=== PATIENT | female | born 1960 | race African-American/Black ===

== ENCOUNTER 2016-07-05 22:28 | Emergency (ER) | payer MEDICARE, OTHER ==
[~2016-07-05] VITALS: Ht 160 cm; Wt 68.0 kg
[~2016-07-05 22:28] MED LIST: ASPI-1035 GT; DOCU-138 GT; FAMO20TA8 GT; FENT1PAT4 TD; FERR-63 GT; FOLI-43 GT; GABA300S PO; LEVO112T7 GT; LEVO250T2 PO; METO5SOL19 PO
[2016-07-06] MEDS ORDERED: MORPHINE SULFATE 4 MG/ML CPJ (NOT FOR IM USE) IV ONE (00:45)
[2016-07-06] MEDS ORDERED: BACITRACIN ZINC OINT UDPKT TOP ONE (00:45)
[2016-07-06] MEDS ORDERED: LIDOCAINE HCL 1% 20ML VIAL (Pyxis) INJ MC ONE (00:45)
[2016-07-06] MEDS ORDERED: ONDANSETRON HCL 4MG/2ML VIAL IV ONE (00:45)
[2016-07-06 01:46] VITALS: BP 127/50
== END 2016-07-06 03:53 | disposition home or self-care (01) ==
LOC: ER 22:28
DX: K94.23 Gastrostomy malfunction (principal); C14.0 Malignant neoplasm of pharynx, unspecified; G89.3 Neoplasm related pain (acute) (chronic); R07.0 Pain in throat; I50.9 Heart failure, unspecified; Z88.0 Allergy status to penicillin; Z88.5 Allergy status to narcotic agent; Z79.899 Other long term (current) drug therapy
CPT/HCPCS: 43760; 74000; 96374; 99284; J2270; J2405; J3490; A4315

== ENCOUNTER 2016-08-29 13:21 | Inpatient (IN) | payer MEDICARE, OTHER ==
[~2016-08-29] VITALS: Ht 160 cm; Wt 68.0 kg
[~2016-08-29 13:21] MED LIST changes: -ASPI-1035 GT; +ASPI-1159 GT
[2016-08-29] MEDS ORDERED: SODIUM CHLORIDE 0.9% 1,000 ML IV ONE (15:00)
[2016-08-29 15:14] LABS: BASOPHILS % 0.6 % (0.0-2.0); EOSINOPHILS % 0.1 % (0.0-5.0); HEMATOCRIT. 31.4 % (36.0-48.0); HEMOGLOBIN. 10.7 g/dL (12.0-16.0); LYMPHOCYTES % 7.3 % (20.0-50.0); MEAN CORPUSCULAR VOLUME 99.7 fL (81.0-99.0); MONOCYTES % 10.1 % (2.0-8.0); NEUTROPHILS % 81.9 % (40.0-76.0); PLATELET 168 x1000/uL (130-400); RED BLOOD CELL COUNT 3.15 mill/uL (4.2-5.4); RED CELL DISTRIBUTION WIDTH 14.5 % (11.6-14.6)
[2016-08-29 15:18] LABS: PROTHROMBIN TIME 10.5 sec
[2016-08-29 15:28] LABS: CARBON DIOXIDE 26 mEq/L (21-32); CHLORIDE 105 mEq/L (98-107); TROPONIN I < 0.02 ng/mL (0.00-0.04)
[2016-08-29] MEDS ORDERED: HYDROCODONE/ACETAMINOPHEN 5/325MG TABLET PO ONE (16:00)
[2016-08-29] MEDS ORDERED: MORPHINE SULFATE 2 MG/ML CPJ (NOT FOR IM USE) IV ONE ×2 (16:45→21:30)
[2016-08-29 17:36] LABS: CLARITY URINE CLEAR (CLEAR); COLOR URINE YELLOW (YELLOW); GLUCOSE URINE NEGATIVE (NEGATIVE); KETONES URINE NEGATIVE (NEGATIVE); LEUKOCYTE ESTERASE URINE TRACE (NEGATIVE); NITRITE URINE NEGATIVE (NEGATIVE); OCCULT BLOOD URINE NEGATIVE (NEGATIVE); PH URINE >=9.0 (4.5-8.0); PROTEIN URINE NEGATIVE (NEGATIVE); SPECIFIC GRAVITY URINE 1.018 (1.005-1.030); UROBILINOGEN URINE 0.2 E.U./dL (0.2-1.0)
[2016-08-29 17:55] LABS: *AMPHETAMINES SCREEN URINE NEGATIVE (NEGATIVE); *BARBITURATES SCREEN URINE NEGATIVE (NEGATIVE); *BENZODIAZEPINES SCREEN URINE NEGATIVE (NEGATIVE); *COCAINE SCREEN URINE NEGATIVE (NEGATIVE); CANNABINOID URINE SCREEN NEGATIVE (NEGATIVE); METHADONE URINE SCREEN NEGATIVE (NEGATIVE); OPIATES URINE SCREEN NEGATIVE (NEGATIVE); PHENCYCLIDINE URINE SCREEN NEGATIVE (NEGATIVE)
[2016-08-29] MEDS ORDERED: LEVOFLOXACIN 500MG PREMIX 100 ML IV NR (18:30)
[2016-08-29] MEDS ORDERED: CLONIDINE 0.1MG TABLET PO PRN (18:30)
[2016-08-29] MEDS ORDERED: ACETAMINOPHEN 650MG/20.3ML UDC GT PRN (18:30)
[2016-08-29] MEDS ORDERED: LORAZEPAM 2MG/ML CPJ IV PRN (18:30)
[2016-08-29] MEDS ORDERED: ONDANSETRON HCL 4MG/2ML VIAL IV PRN (18:30)
[2016-08-29] MEDS ORDERED: ACETAMINOPHEN 325MG TABLET PO PRN (18:30)
[2016-08-29] MEDS: SODIUM CHLORIDE 0.9% 1,000 ML IV SCH (19:00)
[2016-08-29] MEDS: HYDROMORPHONE HCL/PF 2MG/ML CPJ IV PRN (23:39)
[2016-08-30] MEDS: HYDROMORPHONE HCL/PF 2MG/ML CPJ IV PRN ×5 (01:43→22:25)
[2016-08-30 04:55] LABS: BASOPHILS % 0.4 % (0.0-2.0); EOSINOPHILS % 0.4 % (0.0-5.0); HEMATOCRIT. 28.2 % (36.0-48.0); HEMOGLOBIN. 9.5 g/dL (12.0-16.0); LYMPHOCYTES % 14.9 % (20.0-50.0); MEAN CORPUSCULAR HEMOGLOBIN 34.2 pg (28.0-32.0); MEAN CORPUSCULAR VOLUME 101.2 fL (81.0-99.0); MEAN PLATELET VOLUME 9.1 fl (7.4-10.4); MONOCYTES % 10.4 % (2.0-8.0); NEUTROPHILS % 73.9 % (40.0-76.0); PLATELET 139 x1000/uL (130-400); RED BLOOD CELL COUNT 2.78 mill/uL (4.2-5.4); RED CELL DISTRIBUTION WIDTH 14.3 % (11.6-14.6)
[2016-08-30 05:08] LABS: CARBON DIOXIDE 25 mEq/L (21-32); CHLORIDE 111 mEq/L (98-107)
[2016-08-30] MEDS ORDERED: LEVOTHYROXINE SODIUM 112MCG TABLET GT NR (08:15)
[2016-08-30] MEDS: ASPIRIN 81MG TABLET GT SCH (08:46)
[2016-08-30] MEDS: FAMOTIDINE 20MG TABLET GT SCH ×2 (08:46→19:02)
[2016-08-30] MEDS: DOCUSATE SODIUM SUGAR FREE 100MG/10ML UDC GT SCH (08:47)
[2016-08-30] MEDS: FOLIC ACID 1MG TABLET GT SCH ×2 (09:12→19:02)
[2016-08-30] MEDS: FERROUS SULFATE 300MG/5ML UDC GT SCH ×2 (09:13→19:02)
[2016-08-30 10:00] VITALS: BP 121/67
[2016-08-30 10:45] VITALS: BP 121/67
[2016-08-30] MEDS: LEVOTHYROXINE SODIUM 112MCG TABLET GT SCH (10:45)
[2016-08-30] MEDS ORDERED: POTASSIUM CHLORIDE 20MEQ/PACKET GT NR (11:00)
[2016-08-30] MEDS ORDERED: LEVOFLOXACIN 500MG TABLET PO SCH (11:00)
[2016-08-30] MEDS ORDERED: LEVOFLOXACIN 500MG TABLET GT SCH (11:54)
[2016-08-30 12:00] VITALS: BP 109/69
[2016-08-30] MEDS ORDERED: GABAPENTIN 300MG CAPSULE PO SCH (13:00)
[2016-08-30] MEDS ORDERED: MAGNESIUM 1 G PREMIX 100 ML IV NR (13:00)
[2016-08-30] MEDS: SODIUM CHLORIDE 0.9% 1,000 ML IV SCH (13:11)
[2016-08-30] MEDS: ENOXAPARIN 40MG/0.4ML SYR SUBCUT SCH (13:12)
[2016-08-30] MEDS: GABAPENTIN SOLN 50MG/1ML UDC GT SCH ×2 (15:23→22:24)
[2016-08-30 16:00] VITALS: BP 115/68
[2016-08-30 20:00] VITALS: BP 121/73
[2016-08-31] VITALS (7 sets, daily range): BP systolic 102–123; BP diastolic 66–83
[2016-08-31] MEDS: HYDROMORPHONE HCL/PF 2MG/ML CPJ IV PRN ×5 (02:02→15:28)
[2016-08-31] MEDS: GABAPENTIN SOLN 50MG/1ML UDC GT SCH ×2 (06:28→14:17)
[2016-08-31] MEDS: LEVOTHYROXINE SODIUM 112MCG TABLET GT SCH (06:29)
[2016-08-31] MEDS ORDERED: VANCOMYCIN 1 G PREMIX 200 ML IV SCH (08:45)
[2016-08-31] MEDS ORDERED: VANCOMYCIN 1250MG in DEXTROSE 5% WATER 250ML IV SCH (10:00)
[2016-08-31 10:15] LABS: BASOPHILS % 0.4 % (0.0-2.0); EOSINOPHILS % 2.1 % (0.0-5.0); HEMATOCRIT. 28.1 % (36.0-48.0); HEMOGLOBIN. 9.4 g/dL (12.0-16.0); LYMPHOCYTES % 22.9 % (20.0-50.0); MEAN CORPUSCULAR HEMOGLOBIN 33.7 pg (28.0-32.0); MEAN CORPUSCULAR VOLUME 101.3 fL (81.0-99.0); MEAN PLATELET VOLUME 9.7 fl (7.4-10.4); MONOCYTES % 14.3 % (2.0-8.0); NEUTROPHILS % 60.3 % (40.0-76.0); PLATELET 143 x1000/uL (130-400); RED BLOOD CELL COUNT 2.77 mill/uL (4.2-5.4); RED CELL DISTRIBUTION WIDTH 14.2 % (11.6-14.6)
[2016-08-31] MEDS: ENOXAPARIN 40MG/0.4ML SYR SUBCUT SCH (10:32)
[2016-08-31] MEDS: FOLIC ACID 1MG TABLET GT SCH ×2 (10:36→17:12)
[2016-08-31] MEDS: DOCUSATE SODIUM SUGAR FREE 100MG/10ML UDC GT SCH (10:36)
[2016-08-31] MEDS: FAMOTIDINE 20MG TABLET GT SCH ×2 (10:36→17:13)
[2016-08-31] MEDS: ASPIRIN 81MG TABLET GT SCH (10:36)
[2016-08-31] MEDS: FERROUS SULFATE 300MG/5ML UDC GT SCH ×2 (10:37→17:12)
[2016-08-31 10:44] LABS: CARBON DIOXIDE 22 mEq/L (21-32); CHLORIDE 109 mEq/L (98-107)
[2016-08-31] MEDS ORDERED: DIPHENHYDRAMINE 50MG/ML VIAL IV PRN (14:45)
[2016-08-31] MEDS ORDERED: MAGNESIUM 2 G PREMIX 50 ML IV NR (16:30)
[2016-08-31] MEDS ORDERED: VANCOMYCIN 750 MG PREMIX 150 ML IV SCH (21:00)
== END 2016-08-31 20:30 | disposition home or self-care (01) | DRG 444 ==
LOC: ER 15:55 → EDBEDREQ 18:23 → EDBEDREQSVC 19:10 → 6EST 19:51 → EDBEDREQ 19:57 → EDBEDREQTM 19:57 → ENRESERV 08-30 09:18
PROVIDERS: ADMIT Internal Medicine Nephrology; ATTEND Internal Medicine Nephrology
DX: K80.20 Calculus of gallbladder without cholecystitis without obstruction (principal); E43 Unspecified severe protein-calorie malnutrition; N39.0 Urinary tract infection, site not specified; N20.0 Calculus of kidney; B95.1 Streptococcus, group B, as the cause of diseases classified elsewhere; D53.9 Nutritional anemia, unspecified; E03.9 Hypothyroidism, unspecified; Z93.1 Gastrostomy status; Z93.0 Tracheostomy status; Z85.819 Personal history of malignant neoplasm of unspecified site of lip, oral cavity, and pharynx; Z88.0 Allergy status to penicillin; Z88.5 Allergy status to narcotic agent; Z68.26 Body mass index [BMI] 26.0-26.9, adult
CPT/HCPCS: 36415; 71010; 74176; 80048; 80053; 80305; 81001; 82330; 82962; 83036; 83690; 83735; 83880; 84484; 85025; 85610; 87040; 87086; 96361; 96365; 96366; 96375; 96376; 99285; C1893; J1170; J1200; J1650; J1956; J2060; J2270; J2405; J3370; J3475; J7030; J7060

== ENCOUNTER 2019-03-25 19:30 | Inpatient (IN) | payer MEDICARE, OTHER ==
[~2019-03-25] VITALS: Ht 160 cm; Wt 68.9 kg
[~2019-03-25 19:30] MED LIST changes: -ASPI-1159 GT; +ASPI-1497 GT
[2019-03-25] MEDS ORDERED: IPRATROPIUM BROMIDE (0.02%) 0.5MG/2.5ML NEB HHN STA (19:47)
[2019-03-25] MEDS ORDERED: ALBUTEROL (0.083%) 2.5MG/3ML NEB HHN STA (19:47)
[2019-03-25] MEDS ORDERED: LIDOCAINE HCL 4% (40MG/ML) SOLN 50ML TOP ONE (20:30)
[2019-03-25] MEDS ORDERED: LIDOCAINE HCL 2% JELLY 5ML ONE (20:33)
[2019-03-25 21:15] LABS: HEMATOCRIT. 33.1 % (36.0-48.0); HEMOGLOBIN. 11.2 g/dL (12.0-16.0); MEAN CORPUSCULAR VOLUME 106.3 fL (81.0-99.0); MEAN PLATELET VOLUME 8.4 fl (7.4-10.4); PLATELET 222 x1000/uL (130-400); RED BLOOD CELL COUNT 3.11 mill/uL (4.2-5.4); RED CELL DISTRIBUTION WIDTH 14.2 % (11.6-14.6)
[2019-03-25 21:22] LABS: CHLORIDE 100 mEq/L (98-107)
[2019-03-25] MEDS ORDERED: IPRATROPIUM/ALBUTEROL 0.5-3(2.5)MG/3ML NEB NEB PRN (21:45)
[2019-03-25] MEDS ORDERED: CLONIDINE 0.1MG TABLET PO PRN (21:45)
[2019-03-25] MEDS ORDERED: ONDANSETRON HCL 4MG/2ML INJ IV PRN (21:45)
[2019-03-25] MEDS ORDERED: MORPHINE SULFATE 2 MG/ML CPJ (NOT FOR IM USE) IV PRN (21:45)
[2019-03-25] MEDS ORDERED: HYDROCODONE/ACETAMINOPHEN 5/325MG TABLET PO PRN (21:45)
[2019-03-25] MEDS ORDERED: ASPIRIN 81MG TABLET PO ONE (22:15)
[2019-03-25 22:31] LABS: PLATELET ESTIMATE NORMAL
[2019-03-25] MEDS ORDERED: METHYLPREDNISOLONE SOD SUCC 40 MG/ML VIAL IV NR (23:11)
[2019-03-25] MEDS ORDERED: FUROSEMIDE 20MG/2ML VIAL IVP NR (23:11)
[2019-03-26] VITALS (7 sets, daily range): BP systolic 110–145; BP diastolic 63–93
[2019-03-26] MEDS: KETOROLAC 15MG/ML VIAL IV PRN ×3 (01:34→16:05)
[2019-03-26] MEDS: DIPHENHYDRAMINE 50MG/ML VIAL IV PRN ×2 (01:34→18:13)
[2019-03-26] MEDS ORDERED: METHYLPREDNISOLONE SOD SUCC 40 MG/ML VIAL IV SCH (06:00)
[2019-03-26 07:21] LABS: CHLORIDE 101 mEq/L (98-107)
[2019-03-26 07:34] LABS: PHOSPHORUS 3.3 mg/dL (2.5-4.9)
[2019-03-26 07:36] LABS: HEMATOCRIT. 32.6 % (36.0-48.0); HEMOGLOBIN. 11.1 g/dL (12.0-16.0); MEAN CORPUSCULAR HEMOGLOBIN 35.7 pg (28.0-32.0); MEAN CORPUSCULAR VOLUME 104.9 fL (81.0-99.0); MEAN PLATELET VOLUME 9.3 fl (7.4-10.4); PLATELET 220 x1000/uL (130-400); RED BLOOD CELL COUNT 3.11 mill/uL (4.2-5.4); RED CELL DISTRIBUTION WIDTH 14.2 % (11.6-14.6)
[2019-03-26] MEDS: FUROSEMIDE 20MG/2ML VIAL IVP SCH (09:06)
[2019-03-26] MEDS: THIAMINE HCL 100MG TABLET PO SCH (09:06)
[2019-03-26] MEDS: ENOXAPARIN 40MG/0.4ML SYR SUBCUT SCH (09:06)
[2019-03-26] MEDS: ASPIRIN 81MG EC TABLET PO SCH (09:06)
[2019-03-26] MEDS ORDERED: GUAIFENESIN-DM 200MG-20MG/10ML UDC PEG PRN (09:45)
[2019-03-26] MEDS: LEVOFLOXACIN 500MG PREMIX 100 ML IV SCH (11:52)
[2019-03-26] MEDS: BUDESONIDE 0.5MG/2ML NEB HHN SCH (13:04)
[2019-03-26] MEDS: IPRATROPIUM/ALBUTEROL 0.5-3(2.5)MG/3ML NEB HHN SCH ×3 (13:04→21:35)
[2019-03-26] MEDS: ACETYLCYSTEINE 100MG/ML 10% VIAL 4ML INH SCH ×2 (13:05→21:34)
[2019-03-26 13:57] LABS: PLATELET ESTIMATE NORMAL
[2019-03-26] MEDS ORDERED: METOCLOPRAMIDE HCL 10MG/2ML VIAL IV PRN (20:15)
[2019-03-26] MEDS ORDERED: ACETAMINOPHEN 325MG TABLET GT PRN (20:15)
[2019-03-26] MEDS: HYDROCODONE/ACETAMINOPHEN 10/325MG TABLET GT PRN (21:17)
[2019-03-27] VITALS: BP 100/60
[2019-03-27] MEDS: DIPHENHYDRAMINE 50MG/ML VIAL IV PRN (00:12)
[2019-03-27] MEDS: KETOROLAC 15MG/ML VIAL IV PRN ×2 (00:14→08:57)
[2019-03-27] MEDS: IPRATROPIUM/ALBUTEROL 0.5-3(2.5)MG/3ML NEB HHN SCH ×6 (01:13→21:05)
[2019-03-27] MEDS: BUDESONIDE 0.5MG/2ML NEB HHN SCH ×3 (01:14→21:05)
[2019-03-27] MEDS: LORAZEPAM 2MG/ML CPJ IV PRN ×2 (01:49→22:47)
[2019-03-27 04:00] VITALS: BP 98/57
[2019-03-27 05:11] LABS: HEMATOCRIT. 31.4 % (36.0-48.0); HEMOGLOBIN. 10.7 g/dL (12.0-16.0); MEAN CORPUSCULAR HEMOGLOBIN 36.2 pg (28.0-32.0); MEAN CORPUSCULAR VOLUME 105.5 fL (81.0-99.0); RED BLOOD CELL COUNT 2.97 mill/uL (4.2-5.4); RED CELL DISTRIBUTION WIDTH 14.1 % (11.6-14.6)
[2019-03-27 06:13] LABS: PHOSPHORUS 3.8 mg/dL (2.5-4.9)
[2019-03-27 08:00] VITALS: BP 99/59
[2019-03-27] MEDS: MAGNESIUM OXIDE 400MG TABLET PO SCH ×3 (08:49→18:00)
[2019-03-27] MEDS: THIAMINE HCL 100MG TABLET PO SCH (08:49)
[2019-03-27] MEDS: ASPIRIN 81MG EC TABLET PO SCH (08:49)
[2019-03-27] MEDS: ENOXAPARIN 40MG/0.4ML SYR SUBCUT SCH (08:51)
[2019-03-27] MEDS: FUROSEMIDE 20MG/2ML VIAL IVP SCH (08:51)
[2019-03-27] MEDS ORDERED: METHYLPREDNISOLONE SOD SUCC 40 MG/ML VIAL IV SCH (09:00)
[2019-03-27 09:07] LABS: PLATELET ESTIMATE NORMAL
[2019-03-27 09:08] LABS: MEAN PLATELET VOLUME 9.2 fl (7.4-10.4); PLATELET 226 x1000/uL (130-400)
[2019-03-27] MEDS: ACETYLCYSTEINE 100MG/ML 10% VIAL 4ML INH SCH ×2 (09:36→16:49)
[2019-03-27 12:00] VITALS: BP 107/66
[2019-03-27] MEDS: HYDROCODONE/ACETAMINOPHEN 10/325MG TABLET GT PRN ×2 (14:59→21:29)
[2019-03-27] MEDS: LEVOFLOXACIN 500MG PREMIX 100 ML IV SCH (15:00)
[2019-03-27 16:00] VITALS: BP 116/73
[2019-03-27 20:00] VITALS: BP 107/66
[2019-03-28] VITALS: BP 121/67
[2019-03-28] MEDS: ACETYLCYSTEINE 100MG/ML 10% VIAL 4ML INH SCH ×3 (00:53→16:57)
[2019-03-28] MEDS: IPRATROPIUM/ALBUTEROL 0.5-3(2.5)MG/3ML NEB HHN SCH ×6 (00:53→21:32)
[2019-03-28 04:00] VITALS: BP 105/56
[2019-03-28] MEDS: HYDROCODONE/ACETAMINOPHEN 10/325MG TABLET GT PRN (05:56)
[2019-03-28 08:47] VITALS: BP 98/60
[2019-03-28] MEDS: BUDESONIDE 0.5MG/2ML NEB HHN SCH ×2 (08:55→21:32)
[2019-03-28] MEDS: MAGNESIUM OXIDE 400MG TABLET PO SCH ×3 (09:01→17:41)
[2019-03-28] MEDS: ASPIRIN 81MG EC TABLET PO SCH (09:01)
[2019-03-28] MEDS: THIAMINE HCL 100MG TABLET PO SCH (09:01)
[2019-03-28] MEDS: METHYLPREDNISOLONE SOD SUCC 40 MG/ML VIAL IV SCH (09:02)
[2019-03-28] MEDS: ENOXAPARIN 40MG/0.4ML SYR SUBCUT SCH (09:02)
[2019-03-28] MEDS: DIPHENHYDRAMINE 50MG/ML VIAL IV PRN ×3 (09:57→23:54)
[2019-03-28] MEDS ORDERED: LEVOFLOXACIN 250MG TABLET PO SCH (11:00)
[2019-03-28 12:18] VITALS: BP 100/62
[2019-03-28] MEDS ORDERED: LEVOFLOXACIN 500MG PREMIX 100 ML IV SCH (15:15)
[2019-03-28] MEDS: KETOROLAC 15MG/ML VIAL IV PRN ×2 (15:27→21:24)
[2019-03-28] MEDS ORDERED: LEVOFLOXACIN 250MG PREMIX 50 ML IV SCH (17:00)
[2019-03-28 17:09] VITALS: BP 110/65
[2019-03-28] MEDS: SODIUM CHLORIDE 3% FOR INH 4ML UD NEB INH SCH ×2 (17:20→20:00)
[2019-03-29] VITALS (7 sets, daily range): BP systolic 93–117; BP diastolic 55–74
[2019-03-29] MEDS: LORAZEPAM 2MG/ML CPJ IV PRN ×2 (00:15→22:34)
[2019-03-29] MEDS: SODIUM CHLORIDE 3% FOR INH 4ML UD NEB INH SCH ×5 (00:57→16:57)
[2019-03-29] MEDS: ACETYLCYSTEINE 100MG/ML 10% VIAL 4ML INH SCH ×3 (00:57→16:57)
[2019-03-29] MEDS: IPRATROPIUM/ALBUTEROL 0.5-3(2.5)MG/3ML NEB HHN SCH ×6 (00:57→21:44)
[2019-03-29] MEDS: ENOXAPARIN 40MG/0.4ML SYR SUBCUT SCH (08:06)
[2019-03-29] MEDS: THIAMINE HCL 100MG TABLET PO SCH (08:07)
[2019-03-29] MEDS: MAGNESIUM OXIDE 400MG TABLET PO SCH ×3 (08:07→18:26)
[2019-03-29] MEDS: ASPIRIN 81MG EC TABLET PO SCH (08:07)
[2019-03-29] MEDS: METHYLPREDNISOLONE SOD SUCC 40 MG/ML VIAL IV SCH (08:07)
[2019-03-29] MEDS: KETOROLAC 15MG/ML VIAL IV PRN ×3 (08:08→22:34)
[2019-03-29] MEDS: BUDESONIDE 0.5MG/2ML NEB HHN SCH (09:59)
[2019-03-29] MEDS: DIPHENHYDRAMINE 50MG/ML VIAL IV PRN ×2 (12:09→18:27)
[2019-03-29] MEDS: LEVOFLOXACIN 250MG PREMIX 50 ML IV SCH (12:09)
[2019-03-29] MEDS: HYDROCODONE/ACETAMINOPHEN 10/325MG TABLET GT PRN (14:29)
[2019-03-29 17:03] LABS: CHLORIDE 105 mEq/L (98-107)
[2019-03-30] MEDS: IPRATROPIUM/ALBUTEROL 0.5-3(2.5)MG/3ML NEB HHN SCH ×6 (00:47→19:55)
[2019-03-30] MEDS: DIPHENHYDRAMINE 50MG/ML VIAL IV PRN ×3 (01:14→20:34)
[2019-03-30 04:00] VITALS: BP 127/78
[2019-03-30] MEDS: ACETYLCYSTEINE 100MG/ML 10% VIAL 4ML INH SCH ×2 (07:38→15:28)
[2019-03-30] MEDS: ASPIRIN 81MG EC TABLET PO SCH (09:00)
[2019-03-30] MEDS: MAGNESIUM OXIDE 400MG TABLET PO SCH ×3 (09:00→16:55)
[2019-03-30] MEDS: ENOXAPARIN 40MG/0.4ML SYR SUBCUT SCH (09:00)
[2019-03-30] MEDS: THIAMINE HCL 100MG TABLET PO SCH (09:00)
[2019-03-30 12:00] VITALS: BP 110/61
[2019-03-30] MEDS ORDERED: FENTANYL CITRATE/PF 50MCG/ML 2ML VIAL ONE (13:39)
[2019-03-30] MEDS ORDERED: MIDAZOLAM HCL 5 MG/5 ML VIAL ONE (13:39)
[2019-03-30] MEDS ORDERED: DIATR MEGLU/DIATRIZOATE SOLN 30ML ONE (14:19)
[2019-03-30] MEDS: KETOROLAC 15MG/ML VIAL IV PRN (15:31)
[2019-03-30] MEDS: LEVOFLOXACIN 250MG PREMIX 50 ML IV SCH (15:40)
[2019-03-30 16:00] VITALS: BP 115/69
[2019-03-30 18:19] LABS: INR 1.1; PARTIAL THROMBOPLASTIN TIME 23.6 sec (23.4-31.0); PROTHROMBIN TIME 10.8 sec (9.6-11.0)
[2019-03-30 20:00] VITALS: BP 107/63
[2019-03-30] MEDS: LORAZEPAM 2MG/ML CPJ IV PRN (20:35)
[2019-03-31] VITALS: BP 122/80
[2019-03-31] MEDS: ACETYLCYSTEINE 100MG/ML 10% VIAL 4ML INH SCH ×2 (00:33→09:16)
[2019-03-31] MEDS: IPRATROPIUM/ALBUTEROL 0.5-3(2.5)MG/3ML NEB HHN SCH ×4 (00:34→12:36)
[2019-03-31] MEDS: KETOROLAC 15MG/ML VIAL IV PRN (00:57)
[2019-03-31] MEDS: DIPHENHYDRAMINE 50MG/ML VIAL IV PRN (02:16)
[2019-03-31 04:00] VITALS: BP 119/59
[2019-03-31] MEDS: HYDROCODONE/ACETAMINOPHEN 10/325MG TABLET GT PRN (05:08)
[2019-03-31 08:00] VITALS: BP 118/67
[2019-03-31] MEDS: MAGNESIUM OXIDE 400MG TABLET PO SCH (08:33)
[2019-03-31] MEDS: THIAMINE HCL 100MG TABLET PO SCH (08:33)
[2019-03-31] MEDS: ENOXAPARIN 40MG/0.4ML SYR SUBCUT SCH (08:33)
[2019-03-31] MEDS: ASPIRIN 81MG EC TABLET PO SCH (08:33)
[2019-03-31 10:41] VITALS: BP 118/67
[2019-03-31] MEDS: LEVOFLOXACIN 250MG PREMIX 50 ML IV SCH (11:00)
[2019-03-31 12:00] VITALS: BP 99/60
== END 2019-03-31 13:10 | disposition home or self-care (01) | DRG 871 ==
LOC: ER 19:30 → 8WST 21:39 → ENRESERV 22:36
PROVIDERS: ADMIT Internal Medicine Nephrology; ATTEND Internal Medicine Nephrology
PROC: 0BW1XFZ Revision of Tracheostomy Device in Trachea, External Approach (ICD-10-PCS; principal; 2019-03-25)
PROC: 0D20XUZ Change Feeding Device in Upper Intestinal Tract, External Approach (ICD-10-PCS; 2019-03-30)
DX: A41.9 Sepsis, unspecified organism (principal); J96.00 Acute respiratory failure, unspecified whether with hypoxia or hypercapnia; N17.9 Acute kidney failure, unspecified; J44.1 Chronic obstructive pulmonary disease with (acute) exacerbation; J95.03 Malfunction of tracheostomy stoma; E87.1 Hypo-osmolality and hyponatremia; E44.0 Moderate protein-calorie malnutrition; K94.23 Gastrostomy malfunction; J44.0 Chronic obstructive pulmonary disease with (acute) lower respiratory infection; G89.29 Other chronic pain; E83.42 Hypomagnesemia; D53.9 Nutritional anemia, unspecified; D63.8 Anemia in other chronic diseases classified elsewhere; E83.52 Hypercalcemia; Y83.3 Surgical operation with formation of external stoma as the cause of abnormal reaction of the patient, or of later complication, without mention of misadventure at the time of the procedure; Y92.239 Unspecified place in hospital as the place of occurrence of the external cause; E87.6 Hypokalemia; J20.9 Acute bronchitis, unspecified; Z85.819 Personal history of malignant neoplasm of unspecified site of lip, oral cavity, and pharynx; Z87.891 Personal history of nicotine dependence; Z88.5 Allergy status to narcotic agent; Z88.0 Allergy status to penicillin; Z79.2 Long term (current) use of antibiotics; Z79.82 Long term (current) use of aspirin; Z79.899 Other long term (current) drug therapy
CPT/HCPCS: 36415; 71045; 74018; 80048; 80053; 83735; 83880; 84100; 84443; 84484; 85025; 87070; 87804; 93005; 93306; 94640; 96374; 97116; 97162; 97165; 99285; C1893; J1200; J1650; J1885; J1940; J1956; J2060; J2250; J2920; J3010; J7608; J7626; Q9963

== ENCOUNTER 2019-04-19 17:52 | Inpatient (IN) | payer MEDICARE, OTHER ==
[~2019-04-19] VITALS: Ht 160 cm; Wt 64.9 kg
[2019-04-19 20:32] LABS: BASOPHILS % 0.5 % (0.0-2.0); EOSINOPHILS % 4.2 % (0.0-5.0); HEMATOCRIT. 30.9 % (36.0-48.0); HEMOGLOBIN. 10.6 g/dL (12.0-16.0); LYMPHOCYTES % 7.4 % (20.0-50.0); MEAN CORPUSCULAR HEMOGLOBIN 35.5 pg (28.0-32.0); MEAN CORPUSCULAR VOLUME 103.2 fL (81.0-99.0); MEAN PLATELET VOLUME 9.4 fl (7.4-10.4); MONOCYTES % 6.2 % (2.0-8.0); NEUTROPHILS % 81.7 % (40.0-76.0); PLATELET 209 x1000/uL (130-400); RED CELL DISTRIBUTION WIDTH 14.2 % (11.6-14.6)
[2019-04-19 20:34] LABS: CHLORIDE 102 mEq/L (98-107)
[2019-04-19 20:37] LABS: PROTHROMBIN TIME 10.5 sec (9.6-11.0)
[2019-04-19] MEDS ORDERED: KETOROLAC 60MG/2ML VIAL IM ONE (21:15)
[2019-04-19] MEDS ORDERED: SODIUM CHLORIDE 0.9% 1,000 ML IV ONE (22:20)
[2019-04-19 23:45] VITALS: BP 126/70
[2019-04-19] MEDS ORDERED: HYDROCODONE/ACETAMINOPHEN 5/325MG TABLET PO PRN (23:45)
[2019-04-19] MEDS ORDERED: ACETAMINOPHEN 325MG TABLET PO PRN (23:45)
[2019-04-19] MEDS ORDERED: LORAZEPAM 2MG/ML CPJ IV PRN (23:45)
[2019-04-19] MEDS ORDERED: CLONIDINE 0.1MG TABLET PO PRN (23:45)
[2019-04-19] MEDS ORDERED: ONDANSETRON HCL 4MG/2ML INJ IV PRN (23:45)
[2019-04-20] VITALS: BP 126/70
[2019-04-20] MEDS: MORPHINE SULFATE 2 MG/ML CPJ (NOT FOR IM USE) IV PRN ×4 (01:08→20:23)
[2019-04-20] MEDS: IPRATROPIUM/ALBUTEROL 0.5-3(2.5)MG/3ML NEB NEB PRN ×5 (01:42→21:40)
[2019-04-20 04:00] VITALS: BP 105/76
[2019-04-20 06:56] LABS: BASOPHILS % 0.6 % (0.0-2.0); HEMATOCRIT. 29.8 % (36.0-48.0); HEMOGLOBIN. 10.3 g/dL (12.0-16.0); LYMPHOCYTES % 9.7 % (20.0-50.0); MEAN CORPUSCULAR HEMOGLOBIN 35.7 pg (28.0-32.0); MEAN PLATELET VOLUME 9.8 fl (7.4-10.4); MONOCYTES % 9.9 % (2.0-8.0); NEUTROPHILS % 74.8 % (40.0-76.0); PLATELET 191 x1000/uL (130-400); RED BLOOD CELL COUNT 2.89 mill/uL (4.2-5.4); RED CELL DISTRIBUTION WIDTH 13.9 % (11.6-14.6)
[2019-04-20 07:02] LABS: CHLORIDE 105 mEq/L (98-107)
[2019-04-20 09:00] VITALS: BP 110/65
[2019-04-20] MEDS ORDERED: ENOXAPARIN 40MG/0.4ML SYR SUBCUT SCH (09:00)
[2019-04-20] MEDS: SODIUM CHLORIDE 0.9% 1,000 ML IV SCH ×2 (10:03→19:52)
[2019-04-20 12:00] VITALS: BP 111/69
[2019-04-20 16:00] VITALS: BP 126/73
[2019-04-20] MEDS ORDERED: DIATR MEGLU/DIATRIZOATE SOLN 30ML ONE (18:44)
[2019-04-20 20:00] VITALS: BP 119/65
[2019-04-21] VITALS (97 sets, daily range): BP systolic 28–182; BP diastolic 17–102
[2019-04-21] MEDS: PHENYLEPHRINE 40 MG in DEXT 5% WATER 246 ML IV PRN ×4 (05:27→18:51)
[2019-04-21] MEDS: SODIUM CHLORIDE 0.9% 1,000 ML IV SCH (05:30)
[2019-04-21] MEDS: NOREPINEPHRINE 16 MG in DEXT 5% WATER 234 ML IV PRN ×3 (05:32→23:28)
[2019-04-21 06:22] LABS: BG CARBOXYHEMOGLOBIN 0.3 % (0.5-1.5); BG DEOXYHEMOGLOBIN 37.4 % (0.0-5.0); BG FRACTION INSPIRED OXYGEN 100; BG HCO3 ACT 14.1 mmol/L (22.0-26.0); BG METHEMOGLOBIN 0.3 % (0.0-1.5); BG OXYGEN SATURATION 62.4 % (92.0-98.5); BG PH 7.199 (7.350-7.450); BG PO2 42.3 mmHg (75.0-100.0); BG SAMPLE SITE RIGHT RADIAL; BG TIDAL VOLUME(mL) 500 mL; BG TOTAL HEMOGLOBIN 11.6 g/dL (12.0-18.0); BG VENT MODE VENT - A/C; BG VENT RATE 12 set
[2019-04-21 07:01] LABS: BASOPHILS % 0.8 % (0.0-2.0); EOSINOPHILS % 3.7 % (0.0-5.0); HEMATOCRIT. 30.2 % (36.0-48.0); HEMOGLOBIN. 10.1 g/dL (12.0-16.0); LYMPHOCYTES % 22.6 % (20.0-50.0); MEAN CORPUSCULAR HEMOGLOBIN 34.9 pg (28.0-32.0); MEAN CORPUSCULAR VOLUME 104.6 fL (81.0-99.0); MONOCYTES % 1.9 % (2.0-8.0); PLATELET 190 x1000/uL (130-400); RED BLOOD CELL COUNT 2.89 mill/uL (4.2-5.4); RED CELL DISTRIBUTION WIDTH 14.3 % (11.6-14.6)
[2019-04-21 07:27] LABS: BG BASE EXCESS -3.3 mmol/L (-2.0-2.0); BG CARBOXYHEMOGLOBIN 0.3 % (0.5-1.5); BG DEOXYHEMOGLOBIN 62.2 % (0.0-5.0); BG FRACTION INSPIRED OXYGEN 100; BG HCO3 ACT 21.5 mmol/L (22.0-26.0); BG METHEMOGLOBIN 0.5 % (0.0-1.5); BG OXYGEN SATURATION 37.3 % (92.0-98.5); BG PCO2 37.1 mmHg (35.0-45.0); BG PO2 < 30.3 mmHg (75.0-100.0); BG SAMPLE SITE RIGHT FEMORAL; BG TIDAL VOLUME(mL) 500 mL; BG TOTAL HEMOGLOBIN 9.5 g/dL (12.0-18.0); BG VENT MODE VENT - A/C; BG VENT RATE 18 set
[2019-04-21] MEDS ORDERED: IPRATROPIUM/ALBUTEROL 0.5-3(2.5)MG/3ML NEB HHN PRN (08:00)
[2019-04-21] MEDS: VASOPRESSIN 10 UNIT in SODIUM CHLORIDE 0.9% 99.5 ML IV PRN ×4 (08:25→22:04)
[2019-04-21 09:25] LABS: BG BASE EXCESS -13.1 mmol/L (-2.0-2.0); BG CARBOXYHEMOGLOBIN 0.3 % (0.5-1.5); BG DEOXYHEMOGLOBIN 51.9 % (0.0-5.0); BG FRACTION INSPIRED OXYGEN 100; BG HCO3 ACT 13.6 mmol/L (22.0-26.0); BG OXYGEN SATURATION 47.9 % (92.0-98.5); BG OXYHEMOGLOBIN 47.8 % (94.0-97.0); BG PH 7.219 (7.350-7.450); BG PO2 34.4 mmHg (75.0-100.0); BG SAMPLE SITE RIGHT BRACHIAL; BG TIDAL VOLUME(mL) 500 mL; BG TOTAL HEMOGLOBIN 11.8 g/dL (12.0-18.0); BG VENT MODE VENT - A/C; BG VENT RATE 18 set
[2019-04-21] MEDS ORDERED: SODIUM BICARBONATE 8.4% 1 MEQ/ML 50ML SYR IV NR ×2 (10:00→10:30)
[2019-04-21] MEDS ORDERED: DEXT 5%/0.45% NACL 1000ML 1,000 ML IV SCH (10:00)
[2019-04-21 10:10] LABS: CHLORIDE 110 mEq/L (98-107)
[2019-04-21 10:26] LABS: BG BASE EXCESS -10.2 mmol/L (-2.0-2.0); BG CARBOXYHEMOGLOBIN 0.3 % (0.5-1.5); BG DEOXYHEMOGLOBIN 1.9 % (0.0-5.0); BG FRACTION INSPIRED OXYGEN 100; BG HCO3 ACT 16.4 mmol/L (22.0-26.0); BG METHEMOGLOBIN 0.4 % (0.0-1.5); BG OXYGEN SATURATION 98.1 % (92.0-98.5); BG OXYHEMOGLOBIN 97.4 % (94.0-97.0); BG PCO2 38.7 mmHg (35.0-45.0); BG PH 7.245 (7.350-7.450); BG PO2 149.7 mmHg (75.0-100.0); BG SAMPLE SITE RIGHT FEMORAL; BG TIDAL VOLUME(mL) 500 mL; BG TOTAL HEMOGLOBIN 11.9 g/dL (12.0-18.0); BG VENT MODE VENT - A/C; BG VENT RATE 18 set
[2019-04-21] MEDS: METRONIDAZOLE 500 MG PREMIX 100 ML IV SCH ×2 (10:57→18:46)
[2019-04-21] MEDS ORDERED: SODIUM BICARBONATE 50 MEQ in SODIUM CHLORIDE 0.45% 1,000 ML IV SCH (11:30)
[2019-04-21 11:49] LABS: CREATINE KINASE MB FRACTION 4.1 ng/mL (0.5-3.6)
[2019-04-21] MEDS ORDERED: RACEPINEPHRINE 2.25% 0.5ML NEB VIAL HHN NR (13:00)
[2019-04-21] MEDS: VANCOMYCIN 1 G PREMIX 200 ML IV SCH ×2 (13:11→13:14)
[2019-04-21] MEDS: EPINEPHRINE 1 MG in SODIUM CHLORIDE 0.9% 249 ML IV PRN ×2 (13:42→21:36)
[2019-04-21 14:40] LABS: HEMATOCRIT 28.9 % (36.0-48.0); HEMOGLOBIN 9.5 g/dL (12.0-16.0)
[2019-04-21 16:21] LABS: CREATINE KINASE MB FRACTION 28.6 ng/mL (0.5-3.6)
[2019-04-21] MEDS ORDERED: PHENYLEPHRINE 80 MG in DEXT 5% WATER 492 ML IV PRN (19:45)
[2019-04-21] MEDS ORDERED: VANCOMYCIN 750 MG PREMIX 150 ML IV SCH (21:00)
[2019-04-21] MEDS ORDERED: EPINEPHRINE 4 MG in SODIUM CHLORIDE 0.9% 246 ML IV PRN (23:00)
[2019-04-21 23:36] LABS: CREATINE KINASE MB FRACTION 39.6 ng/mL (0.5-3.6)
[2019-04-22] VITALS (10 sets, daily range): BP systolic 47–85; BP diastolic 32–49
[2019-04-22] MEDS: METRONIDAZOLE 500 MG PREMIX 100 ML IV SCH (01:09)
[2019-04-22] MEDS ORDERED: DOPAMINE 800MG PREMIX (DOUBLE) 250 ML IV PRN (01:30)
[2019-04-22 01:50] LABS: BG BASE EXCESS -15.9 mmol/L (-2.0-2.0); BG CARBOXYHEMOGLOBIN 0.3 % (0.5-1.5); BG DEOXYHEMOGLOBIN 17.1 % (0.0-5.0); BG FRACTION INSPIRED OXYGEN 100; BG HCO3 ACT 13.3 mmol/L (22.0-26.0); BG METHEMOGLOBIN 0.8 % (0.0-1.5); BG OXYGEN SATURATION 82.7 % (92.0-98.5); BG OXYHEMOGLOBIN 81.8 % (94.0-97.0); BG PCO2 48.3 mmHg (35.0-45.0); BG PH 7.057 (7.350-7.450); BG PO2 70.8 mmHg (75.0-100.0); BG SAMPLE SITE RIGHT BRACHIAL; BG TIDAL VOLUME(mL) 500 mL; BG TOTAL HEMOGLOBIN 7.1 g/dL (12.0-18.0); BG VENT MODE VENT - A/C; BG VENT RATE 18 set
[2019-04-22 03:13] LABS: CHLORIDE 91 mEq/L (98-107)
== END 2019-04-22 02:56 | disposition expired | DRG 919 ==
LOC: ER 17:52 → EDBEDREQTM 21:04 → EDBEDREQ 21:04 → ENRESERV 22:56 → 6EST 23:41 → 6WST 04-20 08:07 → MICUSO 04-21 04:30
PROVIDERS: ADMIT Internal Medicine Nephrology; ATTEND Internal Medicine Nephrology
PROC: 0D20XUZ Change Feeding Device in Upper Intestinal Tract, External Approach (ICD-10-PCS; principal; 2019-04-20)
PROC: 02HV33Z Insertion of Infusion Device into Superior Vena Cava, Percutaneous Approach (ICD-10-PCS; 2019-04-21)
PROC: B548ZZA Ultrasonography of Superior Vena Cava, Guidance (ICD-10-PCS; 2019-04-21)
PROC: 5A1935Z Respiratory Ventilation, Less than 24 Consecutive Hours (ICD-10-PCS; 2019-04-21)
PROC: 0BH17EZ Insertion of Endotracheal Airway into Trachea, Via Natural or Artificial Opening (ICD-10-PCS; 2019-04-21)
PROC: 5A12012 Performance of Cardiac Output, Single, Manual (ICD-10-PCS; 2019-04-21)
PROC: 5A12012 Performance of Cardiac Output, Single, Manual (ICD-10-PCS; 2019-04-22)
DX: T85.528A Displacement of other gastrointestinal prosthetic devices, implants and grafts, initial encounter (principal); E43 Unspecified severe protein-calorie malnutrition; E87.2 Acidosis; R57.9 Shock, unspecified; G93.1 Anoxic brain damage, not elsewhere classified; D64.9 Anemia, unspecified; E03.9 Hypothyroidism, unspecified; E83.52 Hypercalcemia; I46.9 Cardiac arrest, cause unspecified; Z85.819 Personal history of malignant neoplasm of unspecified site of lip, oral cavity, and pharynx; Z92.21 Personal history of antineoplastic chemotherapy; Z88.0 Allergy status to penicillin; Z88.8 Allergy status to other drugs, medicaments and biological substances; Z79.899 Other long term (current) drug therapy; Z79.82 Long term (current) use of aspirin; Z68.25 Body mass index [BMI] 25.0-25.9, adult
CPT/HCPCS: 36415; 36600; 71045; 74018; 76937; 78580; 80048; 80053; 82375; 82550; 82553; 82805; 82962; 84484; 85014; 85018; 85025; 92950; 93005; 93306; 93970; 94002; 94003; 94640; 96372; 99285; C1725; J1265; J1650; J1885; J2060; J2270; J2370; J3370; J3490; J7030; J7050; J7060; Q9963